=== PATIENT | male | born 1995 | race Caucasian/White ===

== ENCOUNTER 2018-05-27 18:59 | Emergency (ER) | payer OTHER ==
[~2018-05-27] VITALS: Ht 170.2 cm; Wt 52.6 kg
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
--- NOTE | 2018-05-27 19:03 | NUR ---
PT AMBULATED TO BED 12 WITH VSS.
[2018-05-27 19:07] VITALS: BP 145/93
[2018-05-27] MEDS ORDERED: IBUPROFEN 800 MG TAB PO ONE (19:55)
[2018-05-27 21:06] VITALS: BP 145/93
== END 2018-05-27 21:06 | disposition home or self-care (01) ==
LOC: MED 18:59
DX: S46.912A Strain of unspecified muscle, fascia and tendon at shoulder and upper arm level, left arm, initial encounter (principal); J45.909 Unspecified asthma, uncomplicated; V43.52XA Car driver injured in collision with other type car in traffic accident, initial encounter; Y93.19 Activity, other involving water and watercraft; Y92.488 Other paved roadways as the place of occurrence of the external cause; Y99.8 Other external cause status
CPT/HCPCS: 71045; 99283; Q0092